=== PATIENT | female | born 1965 | race Caucasian/White ===

== ENCOUNTER → 2020-08-13 | Outpatient (CLI) | payer OTHER ==
[~2020-08-13] MED LIST: ATIVAN0.5 M1 PO; ELIQUIS5 MG PO; KAPSPARGO SPRIN25 MG PO; LACTULOSE20 GM/30 M PO; LIDOPATCH1 EACH TRANSDERM; MIRALAX17 GM PO; MORPHINE PO; PACERONE 200 M200 M1 PO; PERCOCET 10-321 EAC1 PO; PROTONIX 20 MG20 M1 PO; REMERON30 MG PO; SYNTHROID25 MC1 PO; TOPROL XL50 MG PO
== END ==
LOC: SJCVC 13:31
PROVIDERS: ATTEND Internal Medicine
DX: R94.31 Abnormal electrocardiogram [ECG] [EKG] (principal); I48.0 Paroxysmal atrial fibrillation; I10 Essential (primary) hypertension; E78.5 Hyperlipidemia, unspecified; J43.9 Emphysema, unspecified; C34.90 Malignant neoplasm of unspecified part of unspecified bronchus or lung; C79.51 Secondary malignant neoplasm of bone; K21.9 Gastro-esophageal reflux disease without esophagitis; F32.9 Major depressive disorder, single episode, unspecified; Z79.01 Long term (current) use of anticoagulants; Z79.899 Other long term (current) drug therapy; Z87.891 Personal history of nicotine dependence; Z88.1 Allergy status to other antibiotic agents

== ENCOUNTER 2020-08-15 21:23 | Inpatient (IN) | payer OTHER ==
[~2020-08-15] VITALS: Ht 152.4 cm; Wt 98.7 kg
--- NOTE | ~2020-08-15 | EMS ---
[address] [address] EMS Patient Care Report Name: BRADLEY EATON Room #: 211-P [facility] IN M.R.#: [id number] Admission: 08/16/20 Attend Phys: Maia Pierce MD Discharge: 08/17/20 Date of : 63 Report #: [id number] THIS REPORT FOR: //name// Report Transmitted: 08/21/2020 13:19 EMS Care Summary [facility] Incident [id number] @ 08/15/2020 20:35 Incident Location [address] [place] [address] Patient BRADLEY EATON Female, 54 Years 1965 Patient Address [address] [place] [address] Patient History Chronic Obstructive Pulmonary Disease (COPD),Liver Cancer,Lung Cancer,Atrial Fibrillation, Patient Allergies Other drug allergy, Patient Medications Ativan, Eliquis, Remeron, Metoprolol, Compazine, Morphine, Chief Complaint Chest pressure Disposition Transported No Lights/[place] Dispatch Reason Breathing Problem Transported To [facility] Narrative Dispatched to person having trouble controlling her heart rate. Upon arrival pt found laying in med in moderate distress. Pt complains of chest pressure with shortness of breath also stating her heart rate is fast. Pt states chest [address] [address] EMS Patient Care Report Name: BRADLEY EATON Room #: 211-P DIS IN [facility]#: [id number] Admission: 08/16/20 Attend Phys: Maia Pierce MD Discharge: 08/17/20 Date of : 63 Report #: [id number] pressure started approx 1 hour prior to arrival. while laying in bed. Pt states this feeling is similar to 2 years ago when she needed to be cardioverted. Pt denies nausea or vomiting. Pt states she had been monitoring her pulse and it had been up near 200. ALS assessment. hospital monitor, 12-lead, IV, BG, and 6 mg adenosine. Pt transported to ED for further evaluation and treatment by . Initial Vitals @21:05BP: 112/78, @20:55P: 138,R: 24,BP: 77/56,GCS: 15,CO: 0,SpO2: 96,Revised Trauma: 11, @21:10P: 110,R: 26,CO: 3,SpO2: 97, @20:48P: 112,R: 16,SpO2: 97, @20:48P: 116,R: 18,CO: 2,SpO2: 96, @20:46P: 123,R: 22, @20:42P: 205,R: 16,GCS: 15,CO: 1,SpO2: 94, @21:13P: 108,R: 19,BP: 95/55,CO: 3,SpO2: 96, @21:10R: 31,CO: 2, @21:18P: 104,R: 14,BP: 103/72,Pain: 3/10,GCS: 15,CO: 3,SpO2: 97,Revised Trauma: 12, @20:49P: 113,R: 15,BP: 82/43,Pain: 4/10,GCS: 15,SpO2: 96,Revised Trauma: 11, @20:41P: 205,R: 13,GCS: 15,Glucose: 118,SpO2: 96, Assessments @20:42MENTAL:Person Oriented,Time Oriented,Place Oriented,Event Oriented,SKIN:Diaphoresis,Pale,HEENT:LUNG SOUNDS:ABDOMEN:PELVIS//GI:EXTREMITIES:PULSE:Radial: 2+ Normal,NEURO:@20:58MENTAL:Person Oriented,Time Oriented,Place Oriented,Event Oriented,SKIN:HEENT:Eyes: Left Pupil: 5-mm,Eyes: Right Pupil: 4-mm,LUNG SOUNDS:Left Upper: No Abnormalities,Right Upper: No Abnormalities,Left Lower: No Abnormalities,Right Lower: No Abnormalities,ABDOMEN:Left Upper: No Abnormalities,Right Upper: No Abnormalities,Left Lower: No Abnormalities,Right Lower: No Abnormalities,PELVIS//GI:EXTREMITIES:Left Arm: No Abnormalities,Right Arm: No Abnormalities,Left Leg: No Abnormalities,Right Leg: No Abnormalities,PULSE:Radial: 2+ Normal,NEURO: Impression Chest Pain / Discomfort Procedures @20:4612-Lead ECG@21:1012-Lead ECG@20:4812-Lead ECG@20:4212-Lead ECGResponse: UnchangedSucceeded@20:4812-Lead ECG@20:44Normal Saline (.9% NaCl) 10cc (18 ga) Site: Antecubital-LeftResponse: UnchangedSucceeded@20:45Adenosine - 6 Milligrams (mg) - Intravenous (IV)Response: Improved@20:50Normal Saline (.9% NaCl) 750cc () Site: Antecubital-LeftResponse: ImprovedSucceeded@20:42ALS AssessmentResponse: UnchangedSucceeded Timeline [address] [address] EMS Patient Care Report Name: BRADLEY EATON Room #: 211-P [facility] IN .R.#: [id number] Admission: 08/16/20 Attend Phys: Maia Pierce MD Discharge: 08/17/20 Date of : 63 Report #: [id number] 20:33,Call Received 20:33,Psap Call 20:35,Dispatched 20:37,En Route 20:40,On Scene 20:41,At Patient 20:41,BP: / M,PULSE: 205,RR: 13 R,SPO2: 96 Ox,ETCO2: ,B,PAIN: ,GCS: 15, 20:42,ALS Assessment,Response: UnchangedSucceeded, 20:42,12-Lead ECG,Response: UnchangedSucceeded, 20:42,BP: / M,PULSE: 205,RR: 16 R,SPO2: 94 Ox,ETCO2: ,BG: ,PAIN: ,GCS: 15, 20:44,Normal Saline (.9% NaCl) 10cc 18 ga Site: Antecubital-Left,Response: UnchangedSucceeded, 20:45,Adenosine - 6 Milligrams (mg) - Intravenous (IV),Response: Improved 20:46,12-Lead ECG, 20:46,BP: / M,PULSE: 123,RR: 22 R,SPO2: Ox,ETCO2: ,BG: ,PAIN: ,GCS: , 20:48,12-Lead ECG, 20:48,BP: / M,PULSE: 116,RR: 18 R,SPO2: 96 Ox,ETCO2: ,BG: ,PAIN: ,GCS: , 20:48,12-Lead ECG, 20:48,BP: / M,PULSE: 112,RR: 16 R,SPO2: 97 Ox,ETCO2: ,BG: ,PAIN: ,GCS: , 20:49,BP: 82/43 M,PULSE: 113,RR: 15 R,SPO2: 96 Ox,ETCO2: ,BG: ,PAIN: 4,GCS: 15, 20:50,Normal Saline (.9% NaCl) 750cc Site: Antecubital-Left,Response: ImprovedSucceeded, 20:55,BP: 77/56 M,PULSE: 138,RR: 24 R,SPO2: 96 Ox,ETCO2: ,BG: ,PAIN: ,GCS: 15, 20:58,Depart Scene 21:05,BP: 112/78 M,PULSE: ,RR: R,SPO2: Ox,ETCO2: ,BG: ,PAIN: ,GCS: , 21:10,BP: / M,PULSE: 110,RR: 26 R,SPO2: 97 Ox,ETCO2: ,BG: ,PAIN: ,GCS: , 21:10,12-Lead ECG, 21:10,BP: / M,PULSE: ,RR: 31 R,SPO2: Ox,ETCO2: ,BG: ,PAIN: ,GCS: , 21:13,BP: 95/55 M,PULSE: 108,RR: 19 R,SPO2: 96 Ox,ETCO2: ,BG: ,PAIN: ,GCS: , 21:18,BP: 103/72 M,PULSE: 104,RR: 14 R,SPO2: 97 Ox,ETCO2: ,BG: ,PAIN: 3,GCS: 15, 21:20,At Destination 21:51,Call Closed Disclaimer v1.1 Copyright 2020 [employer] This EMS Care Summary contains data elements from the applicable legal record (which may be displayed differently). It is designed to provide pertinent information for the following purposes: continuity of care, clinical quality, and state data reporting. The complete legal record is available to ED staff and administrators of the receiving hospital in [email or web address]'s Patient Tracker. All data is provided "as is."
--- NOTE | ~2020-08-15 | EMS ---
[address] [address] EMS Patient Care Report Name: BRADLEY EATON Room #: REG [facility]#: [id number] Admission: 08/15/20 Attend Phys: Discharge: Date of : 63 Report #: [id number] THIS REPORT FOR: //name// Report Transmitted: 08/15/2020 22:[address] [facility] Incident [id number] @ 08/15/2020 20:35 Incident Location [address] [place] [address] Patient BRADLEY EATON Female, 54 Years 1965 Patient Address [address] [place] [address] Patient History Chronic Obstructive Pulmonary Disease (COPD),Liver Cancer,Lung Cancer,Atrial Fibrillation, Patient Allergies Other drug allergy, Patient Medications Ativan, Eliquis, Remeron, Metoprolol, Compazine, Morphine, Chief Complaint Chest pressure Disposition Transported No Lights/[place] Dispatch Reason Breathing Problem Transported To [facility] Narrative Dispatched to person having trouble controlling her heart rate. Upon arrival pt found laying in med in moderate distress. Pt complains of chest pressure with shortness of breath also stating her heart rate is fast. Pt states chest [facility] [address] [place] [address] EMS Patient Care Report Name: BRADLEY EATON Room #: REG [facility]#: [id number] Admission: 08/15/20 Attend Phys: Discharge: Date of : 63 Report #: [id number] pressure started approx 1 hour prior to arrival. while laying in bed. Pt states this feeling is similar to 2 years ago when she needed to be cardioverted. Pt denies nausea or vomiting. Pt states she had been monitoring her pulse and it had been up near 200. ALS assessment. pediatric nephrologist, 12-lead, IV, BG, and 6 mg adenosine. Pt transported to ED for further evaluation and treatment by MD. Initial Vitals @21:05BP: 112/78, @20:55P: 138,R: 24,BP: 77/56,GCS: 15,CO: 0,SpO2: 96,Revised Trauma: 11, @21:10P: 110,R: 26,CO: 3,SpO2: 97, @20:48P: 112,R: 16,SpO2: 97, @20:48P: 116,R: 18,CO: 2,SpO2: 96, @20:46P: 123,R: 22, @20:42P: 205,R: 16,GCS: 15,CO: 1,SpO2: 94, @21:13P: 108,R: 19,BP: 95/55,CO: 3,SpO2: 96, @21:10R: 31,CO: 2, @21:18P: 104,R: 14,BP: 103/72,Pain: 3/10,GCS: 15,CO: 3,SpO2: 97,Revised Trauma: 12, @20:49P: 113,R: 15,BP: 82/43,Pain: 4/10,GCS: 15,SpO2: 96,Revised Trauma: 11, @20:41P: 205,R: 13,GCS: 15,Glucose: 118,SpO2: 96, Assessments @20:42MENTAL:Person Oriented,Time Oriented,Place Oriented,Event Oriented,SKIN:Diaphoresis,Pale,HEENT:LUNG SOUNDS:ABDOMEN:PELVIS//GI:EXTREMITIES:PULSE:Radial: 2+ Normal,NEURO:@20:58MENTAL:Person Oriented,Time Oriented,Place Oriented,Event Oriented,SKIN:HEENT:Eyes: Left Pupil: 5-mm,Eyes: Right Pupil: 4-mm,LUNG SOUNDS:Left Upper: No Abnormalities,Right Upper: No Abnormalities,Left Lower: No Abnormalities,Right Lower: No Abnormalities,ABDOMEN:Left Upper: No Abnormalities,Right Upper: No Abnormalities,Left Lower: No Abnormalities,Right Lower: No Abnormalities,PELVIS//GI:EXTREMITIES:Left Arm: No Abnormalities,Right Arm: No Abnormalities,Left Leg: No Abnormalities,Right Leg: No Abnormalities,PULSE:Radial: 2+ Normal,NEURO: Impression Chest Pain / Discomfort Procedures @20:4612-Lead ECG@21:1012-Lead ECG@20:4812-Lead ECG@20:4212-Lead ECGResponse: UnchangedSucceeded@20:4812-Lead ECG@20:44Normal Saline (.9% NaCl) 10cc (18 ga) Site: Antecubital-LeftResponse: UnchangedSucceeded@20:45Adenosine - 6 Milligrams (mg) - Intravenous (IV)Response: Improved@20:50Normal Saline (.9% NaCl) 750cc () Site: Antecubital-LeftResponse: ImprovedSucceeded@20:42ALS AssessmentResponse: UnchangedSucceeded Timeline [facility] [address] [place] [address] EMS Patient Care Report Name: BRADLEY EATON [id number] Admission: 08/15/20 Attend Phys: Discharge: Date of : 63 Report #: [id number] 20:33,Call Received 20:33,Psap Call 20:35,Dispatched 20:37,En Route 20:40,On Scene 20:41,At Patient 20:41,BP: / M,PULSE: 205,RR: 13 R,SPO2: 96 Ox,ETCO2: ,B,PAIN: ,GCS: 15, 20:42,ALS Assessment,Response: UnchangedSucceeded, 20:42,12-Lead ECG,Response: UnchangedSucceeded, 20:42,BP: / M,PULSE: 205,RR: 16 R,SPO2: 94 Ox,ETCO2: ,BG: ,PAIN: ,GCS: 15, 20:44,Normal Saline (.9% NaCl) 10cc 18 ga Site: Antecubital-Left,Response: UnchangedSucceeded, 20:45,Adenosine - 6 Milligrams (mg) - Intravenous (IV),Response: Improved 20:46,12-Lead ECG, 20:46,BP: / M,PULSE: 123,RR: 22 R,SPO2: Ox,ETCO2: ,BG: ,PAIN: ,GCS: , 20:48,12-Lead ECG, 20:48,BP: / M,PULSE: 116,RR: 18 R,SPO2: 96 Ox,ETCO2: ,BG: ,PAIN: ,GCS: , 20:48,12-Lead ECG, 20:48,BP: / M,PULSE: 112,RR: 16 R,SPO2: 97 Ox,ETCO2: ,BG: ,PAIN: ,GCS: , 20:49,BP: 82/43 M,PULSE: 113,RR: 15 R,SPO2: 96 Ox,ETCO2: ,BG: ,PAIN: 4,GCS: 15, 20:50,Normal Saline (.9% NaCl) 750cc Site: Antecubital-Left,Response: ImprovedSucceeded, 20:55,BP: 77/56 M,PULSE: 138,RR: 24 R,SPO2: 96 Ox,ETCO2: ,BG: ,PAIN: ,GCS: 15, 20:58,Depart Scene 21:05,BP: 112/78 M,PULSE: ,RR: R,SPO2: Ox,ETCO2: ,BG: ,PAIN: ,GCS: , 21:10,BP: / M,PULSE: 110,RR: 26 R,SPO2: 97 Ox,ETCO2: ,BG: ,PAIN: ,GCS: , 21:10,12-Lead ECG, 21:10,BP: / M,PULSE: ,RR: 31 R,SPO2: Ox,ETCO2: ,BG: ,PAIN: ,GCS: , 21:13,BP: 95/55 M,PULSE: 108,RR: 19 R,SPO2: 96 Ox,ETCO2: ,BG: ,PAIN: ,GCS: , 21:18,BP: 103/72 M,PULSE: 104,RR: 14 R,SPO2: 97 Ox,ETCO2: ,BG: ,PAIN: 3,GCS: 15, 21:20,At Destination 21:51,Call Closed Disclaimer v1.1 Copyright 2020 [employer] This EMS Care Summary contains data elements from the applicable legal record (which may be displayed differently). It is designed to provide pertinent information for the following purposes: continuity of care, clinical quality, and state data reporting. The complete legal record is available to ED staff and administrators of the receiving hospital in [employer]'s Patient Tracker. All data is provided "as is."
[2020-08-15 21:38] LABS: HEMOGLOBIN 10.6 gm/dL (12.0-15.0); MCH 30.2 pg (26.0-34.0); MCV 91.4 fL (80.0-100.0); PLATELET COUNT 60 thou/uL (150-400); RDW 14.7 % (10.5-14.5); WBC 2.4 thou/uL (4.0-11.0)
[2020-08-15 21:52] LABS: ANION GAP 11 mmol/L (7-16); BUN 14 mg/dL (7-18); CALCIUM 8.5 mg/dL (8.5-10.1); CHLORIDE 103 mmol/L (98-107); CO2 26 mmol/L (21-32); CREATININE 0.9 mg/dL (0.6-1.0); GLUCOSE 110 mg/dL (74-106); POTASSIUM 3.8 mmol/L (3.5-5.1); SODIUM 140 mmol/L (136-145)
[2020-08-15 22:03] LABS: ALBUMIN 2.2 g/dL (3.4-5.0); AMYLASE 12 U/L (25-115); DIRECT BILIRUBIN 0.2 mg/dL (<0.1-0.2); LIPASE 35 U/L (73-393); MAGNESIUM 2.1 mg/dL (1.8-2.4); PHOSPHORUS 2.4 mg/dL (2.6-4.7); SGOT 113 U/L (15-37); SGPT 37 U/L (14-59); TOTAL BILIRUBIN 0.5 mg/dL (0.2-1.0); TROPONIN-I <0.06 ng/mL (<0.06)
[2020-08-15 22:11] LABS: ABSOLUTE NEUTROPHILS 1.6 thou/uL (1.4-8.2); METAMYELOCYTES 1 %; NUCLEATED RBCS 3 /100WBC; PLATELET ESTIMATE DECREASED
[2020-08-15 22:30] LABS: URINE BILIRUBIN 1+ (Negative); URINE BLOOD NEGATIVE (Negative); URINE CLARITY CLEAR; URINE COLOR YELLOW; URINE GLUCOSE-RANDOM* NEGATIVE (Negative); URINE KETONES 1+ (Negative); URINE LEUKOCYTES-REFLEX NEGATIVE (Negative); URINE NITRITE-REFLEX NEGATIVE (Negative); URINE PROTEIN (DIPSTICK) NEGATIVE (Negative)
[2020-08-15 22:32] LABS: ICTOTEST (BILI CONFIRMATORY) Positive (Negative)
[2020-08-16] VITALS (7 sets, daily range): BP systolic 97–138; BP diastolic 58–108
[2020-08-16] MEDS ORDERED: TOPROL XL50 MG PO (03:07)
[2020-08-16] MEDS ORDERED: KAPSPARGO SPRIN25 MG PO (03:08)
[2020-08-16] MEDS ORDERED: ELIQUIS5 MG PO (03:10)
[2020-08-16] MEDS ORDERED: ATIVAN0.5 M1 PO (03:13)
[2020-08-16] MEDS ORDERED: REMERON30 MG PO (03:14)
[2020-08-16] MEDS ORDERED: MORPHINE PO (03:16)
[2020-08-16] MEDS ORDERED: PERCOCET 10-321 EAC1 PO ×2 (03:18→03:19)
--- NOTE | 2020-08-16 08:49 | EKG ---
[address] [address] ELECTROCARDIOGRAM REPORT Name: EATONBRADLEY Room #: 211-[facility]#: [id number] Admission: 08/16/20 Attend Phys: Maia Pierce MD Discharge: Date of : 63 Report #: [id number] [facility] ED Test Date: 2020-08-15 Test Time: 21:30:57 Pat Name: BRADLEY EATON Department: Room: 211 Gender: F Junior Architect: DAWN : 1965 Requested By: Richi Hensley Order Number: [id number] MD: Enmanuel Lam Measurements Intervals [place] Rate: 107 P: 66 SC: 149 QRS: 29 QRSD: 91 T: QT: 299 QTc: 399 Interpretive Statements Sinus tachycardia Nonspecific ST and T wave abnormality No previous ECG available for comparison Electronically Signed On 08-16-2020 8:49:21 CDT by Enmanuel Lam [email or web address] <ELECTRONICALLY SIGNED> By: Enmanuel Lam MD, [facility] 08/16/20 0849 2130 2130 Enmanuel Lam MD, FACC /EPI
[2020-08-17] VITALS (7 sets, daily range): BP systolic 102–126; BP diastolic 64–81
[2020-08-17 04:52] LABS: HEMATOCRIT 28.2 % (37.0-47.0); HEMOGLOBIN 9.5 gm/dL (12.0-15.0); MCH 30.7 pg (26.0-34.0); MCHC 33.7 g/dL (28.0-37.0); MCV 91.2 fL (80.0-100.0); RBC 3.09 mil/uL (4.20-5.00); RDW 14.9 % (10.5-14.5); WBC 2.4 thou/uL (4.0-11.0)
[2020-08-17] MEDS ORDERED: LACTULOSE20 GM/30 M PO (09:33)
[2020-08-17] MEDS ORDERED: MIRALAX17 GM PO (09:33)
[2020-08-17] MEDS ORDERED: SYNTHROID25 MC1 PO (09:34)
[2020-08-17] MEDS ORDERED: LIDOPATCH1 EACH TRANSDERM (09:34)
[2020-08-17] MEDS ORDERED: PROTONIX 20 MG20 M1 PO (09:34)
[2020-08-17] MEDS ORDERED: PACERONE 200 M200 M1 PO (09:37)
== END 2020-08-17 13:44 | disposition hospice, home (50) | DRG 308 ==
LOC: ER 21:23 → 2N 08-16 00:54 → EROBS 08-16 00:54 → 2N 08-16 00:54
PROVIDERS: Emergency Medicine; Nurse Practitioner; ADMIT Internal Medicine; ATTEND Internal Medicine
DX: I47.1 Supraventricular tachycardia (principal); D61.810 Antineoplastic chemotherapy induced pancytopenia; C34.90 Malignant neoplasm of unspecified part of unspecified bronchus or lung; K92.2 Gastrointestinal hemorrhage, unspecified; C78.7 Secondary malignant neoplasm of liver and intrahepatic bile duct; C79.51 Secondary malignant neoplasm of bone; I10 Essential (primary) hypertension; I48.0 Paroxysmal atrial fibrillation; J44.9 Chronic obstructive pulmonary disease, unspecified; E78.5 Hyperlipidemia, unspecified; Z20.822 Contact with and (suspected) exposure to COVID-19; Z79.899 Other long term (current) drug therapy; Z88.8 Allergy status to other drugs, medicaments and biological substances
CPT/HCPCS: 10081